=== PATIENT | male | born 1970 | race Caucasian/White ===

== ENCOUNTER 2017-06-10 10:08 | Emergency (ER) | payer OTHER ==
[2017-06-10 10:18] VITALS: BMI 23.1
--- NOTE | 2017-06-10 10:30 | PDOC ---
History of Present Illness - General Chief Complaint: Pain, Acute Stated Complaint: PAIN Time Seen by Provider: 06/10/17 10:29 History Source: Patient Exam Limitations: No Limitations - History of Present Illness Initial Comments: 46 year old male with history of ALS presenting with Left sided flank pain radiating to his groin but originally beginning in his groin 3 days prior. He states that he experienced a 5-7/10 sharp pain in his groin three days ago without any concomitant symptoms that eventually radiated to his left flank/ back and he now describes as a 10/10 sharp pain that radiates to his groin. This has co-presented with some diaphoresis, chills, and shortness of breath. The pain itself does relapse and remit in 5-10 minute intervals. Of note, he had some difficulty urinating yesterday. Denies any fevers, cough, chest pain, changes in urine color, or other symptoms. He is on bi-pap at home to help him breath. 06/10/17 12:07 06/10/17 13:43 06/10/17 13:43 06/10/17 16:34 Past History - Past Medical History Allergies/Adverse Reactions: Allergies Allergy/AdvReac Type Severity Reaction Status Date / Time No Known Allergies Allergy Verified 06/10/17 10:15 Home Medications: Ambulatory Orders Ibuprofen [Motrin -] 400 mg PO TID #21 tablet 06/10/17 Oxycodone HCl 5 mg PO TID PRN #21 capsule MDD 3 pills 06/10/17 Riluzole 50 mg PO BID 06/10/17 Tamsulosin HCl 0.4 mg PO HS #7 cap.er.24h 06/10/17 GI Disorders: Yes (Hep B) Other medical history: ALS - Psycho/Social/Smoking Cessation Hx Anxiety: No Suicidal Ideation: No Smoking History: Never smoked Have you smoked in the past 12 months: No Information on smoking cessation initiated: No Hx Alcohol Use: No Drug/Substance Use Hx: No Substance Use Type: None *Physical Exam - Vital Signs Last Vital Signs Temp Pulse Resp BP Pulse Ox 98.2 F 69 22 118/92 100 06/10/17 10:16 06/10/17 10:16 06/10/17 10:16 06/10/17 10:16 06/10/17 10:16 - Physical Exam General Appearance: Yes: Nourished, Appropriately Dressed, Apparent Distress, Moderate Distress HEENT: positive: EOMI, DESTINY, Normal Voice Neck: positive: Tender, Trachea midline, Normal Thyroid Respiratory/Chest: positive: Lungs Clear, Normal Breath Sounds, Respiratory Distress (Patient has shallow breaths and in mild respiratory distress apparently secondary to pain.), Labored Respiration. negative: Chest Tender, Accessory Muscle Use, Rhonchi, Stridor, Wheezing Cardiovascular: positive: Regular Rhythm, Regular Rate, S1, S2. negative: Murmur Gastrointestinal/Abdominal: positive: Normal Bowel Sounds, Flat, Soft. negative : Tender, Organomegaly Musculoskeletal: positive: Other (General weakness) Neurologic: positive: Fully Oriented, Alert, Normal Mood/Affect, Other ( Generally weak per his baseline). negative: Motor Strength 03/21 ED Treatment Course - LABORATORY CBC & Chemistry Diagram: 06/10/17 09:40 06/10/17 10:56 Medical Decision Making - Medical Decision Making 46 year old male with history of ALS presenting with Left sided flank pain radiating to his groin but originally beginning in his groin 3 days prior. This is admittedly an unclear symptomatology given the nature of fluctuating radiation and origin of pain. We should rule out urinary infectious etiology and renal calculus. Will send UA, U Culture, CBC, CMP, tropoin, CXR, and CT abdomen pelvis without contrast. 06/10/17 13:43 06/10/17 14:02 Labs significant for neg trop, WBC 13, no abnormalities on UA, T-bili 1.[address] demonstrating stone in bladder with non obstructing left sided stone. Will reassess after 2 of morphine administered. 06/10/17 16:34 Patient much better after 2 of morphine and 15 of toradol. Will DC home with flowmax, Oxy 5, and Motrin *DC/Admit/Observation/Transfer Diagnosis at time of Disposition: Bilateral nephrolithiasis - Discharge Dispostion Disposition: HOME Condition at time of disposition: Improved Admit: No - Prescriptions Prescriptions: Ibuprofen [Motrin -] 400 mg PO TID #21 tablet Oxycodone HCl 5 mg PO TID PRN #21 capsule MDD 3 pills PRN Reason: Back Pain Tamsulosin HCl 0.4 mg PO HS #7 cap.er.24h - Referrals Referrals: Anup Phillips MD [Primary Care Provider] - - Patient Instructions Printed Discharge Instructions: Kidney Stones -- Adult Additional Instructions: You were seen for back pain and groin pain. We did a CT which showed kidney stones. They will most likely pass on their own. We will prescribe you some pain medication and a medication that will relax the smooth muscles in your urinary tract to help move the stones. Please take your motrin twice a day and you can take your oxycodone as needed if the pain isn't controlled by your motrin. Please return if you have pain that is not controlled with your medications or you get fevers, chills, nausea,a vomiting, or other sick symptoms. Please run your urine through a strainer to catch your stones so you can bring them into your primary care physician.
[2017-06-10] MEDS ORDERED: HYDROmorphone HCL CARPU-JECT 1 MG/1 ML DISP.SYRIN IVPUSH ONE (10:53)
[2017-06-10] MEDS ORDERED: ACETAMINOPHEN 1000 MG/100 ML VIAL (NON FORMULARY) IVPB ONE (10:57)
[2017-06-10] MEDS ORDERED: ACETAMINOPHEN INJECTION 100 ML IVPB ONE (11:00)
[2017-06-10 11:09] LABS: BASOPHIL 0.3 % (0-2.0); EOSINOPHIL 0.1 % (0-4.5); MCH 30.4 pg (25.7-33.7); MCHC 33.8 g/dl (32.0-35.9); MEAN CELL VOLUME 89.9 fl (80-96); MEAN PLT VOLUME 9.9 fl (7.5-11.1); NEUTROPHILS 87.4 % (42.8-82.8); PLATELET COUNT 214 K/MM3 (134-434); RDW 14.3 % (11.9-15.9); WHITE BLOOD COUNT 13.2 K/mm3 (4.0-10.0)
[2017-06-10] MEDS ORDERED: SODIUM CHLORIDE 0.9% 1000 ML INFUS.BAG IV ONE (11:12)
[2017-06-10 11:29] LABS: ALBUMIN 4.5 g/dl (3.4-5.0); ALK PHOS 59 U/L (45-117); ANION GAP 10 (8-16); BILIRUBIN,TOTAL 1.5 mg/dL (0.2-1.0); CALCIUM 9.9 mg/dL (8.5-10.1); CO2 24 mmol/L (21-32); CREATININE 0.4 mg/dL (0.7-1.3); GLUCOSE,RANDOM 109 mg/dL (74-106); SGPT/ALT 36 U/L (12-78); TOT PROT 8.3 g/dl (6.4-8.2)
[2017-06-10 11:31] LABS: SGOT/AST 54 U/L (15-37)
--- NOTE | 2017-06-10 11:37 | PDOC ---
Attending Attestation - Resident Resident Name: AdryanMarjanjorge l - ED Attending Attestation I have performed the following: I have examined & evaluated the patient, The case was reviewed & discussed with the resident, I agree w/resident's findings & plan, Exceptions are as noted - HPI HPI: 06/10/17 11:35 46-year-old male with ALS presents with right groin/flank pain over the last 3 days. Feels clammy particularly with the pain exacerbations, reports some urinary complaints, denies any other nausea/vomiting/diarrhea/constipation. No acute respiratory complaints, uses Cpap at night at baseline. No fevers or chills. No known history of kidney stones, has had urinary infections in the past. - Physicial Exam PE: 06/10/17 11:36 Afebrile. Vital signs normal, Slightly tachypneic Heart and lungs are clear Mild right CVA discomfort, no abdominal tenderness. Urine at bedside is cloudy but not grossly bloody Baseline neurological generalized weakness - Medical Decision Making 06/10/17 11:37 Patient seen and evaluated with the resident. I agree with the overall evaluation, assessment, and management with the following summary of visit: 46-year-old male with ALS presents with right groin pain radiating to the right flank. Presentation could be consistent with UTI/pyelonephritis, rule out stone , rule out pulmonary pathology. Labs, urinalysis, urine culture Chest x-ray, noncontrast CT of the abdomen and pelvis Pain control, IV fluids Reassess
[2017-06-10 11:49] LABS: TROPONIN I < 0.02 ng/ml (0.00-0.05)
[2017-06-10 11:53] LABS: URINE APPEARANCE CLOUDY; URINE BILIRUBIN NEGATIVE (NEGATIVE); URINE BLOOD NEGATIVE (NEGATIVE); URINE COLOR YELLOW; URINE GLUCOSE (UA) NEGATIVE (NEGATIVE); URINE KETONE 2+ (NEGATIVE); URINE LEUK ESTERASE NEGATIVE (NEGATIVE); URINE NITRITE NEGATIVE (NEGATIVE); URINE PROTEIN NEGATIVE (NEGATIVE); URINE UROBILINOGEN NEGATIVE mg/dL (0.2-1.0)
[2017-06-10 12:20] LABS: CK INDEX FOR DOBBS 5.1 % (0.0-5.0)
[2017-06-10] MEDS ORDERED: morphine CARPU-JECT 2 MG/1 ML DISP.SYRIN IVPUSH ONE ×2 (12:33→13:09)
[2017-06-10] MEDS ORDERED: morphine CARPU-JECT 4 MG/1 ML DISP.SYRIN ONE (14:03)
[2017-06-10] MEDS ORDERED: KETOROLAC TROMETHAMINE 15 MG/ML VIAL IVPUSH ONE (14:43)
[2017-06-10] MEDS ORDERED: KETOROLAC TROMETHAMINE 15 MG/ML VIAL ONE (14:59)
--- NOTE | 2017-06-10 15:35 | EKG ---
Test Reason : Blood Pressure : / mmHG Vent. Rate : 086 BPM Atrial Rate : 086 BPM P-R Int : 148 ms QRS Dur : 082 ms QT Int : 376 ms P-R-T Axes : 001 -24 -15 degrees QTc Int : 449 ms POOR DATA QUALITY, INTERPRETATION MAY BE ADVERSELY AFFECTED NORMAL SINUS RHYTHM EARLY TRANSSITION IN V2 MODERATE VOLTAGE CRITERIA FOR LVH, MAY BE NORMAL VARIANT BORDERLINE ECG NO PREVIOUS ECGS AVAILABLE CLINICAL CORRELATION IS RECOMMENDED Confirmed by KAREN PIMENTEL MD ([id number]) on 06/10/2017 3:35:23 PM Referred By: Confirmed By:KAREN PIMENTEL MD
[2017-06-10 17:10] VITALS: BP 147/72; PULSE 88; TEMP 98
== END 2017-06-10 17:08 | disposition home or self-care (01) ==
LOC: JER 10:08
PROC: 3E033NZ Introduction of Analgesics, Hypnotics, Sedatives into Peripheral Vein, Percutaneous Approach (ICD-10-PCS; principal; 2017-06-10)
PROC: 3E0333Z Introduction of Anti-inflammatory into Peripheral Vein, Percutaneous Approach (ICD-10-PCS; 2017-06-10)
PROC: 3E033NZ Introduction of Analgesics, Hypnotics, Sedatives into Peripheral Vein, Percutaneous Approach (ICD-10-PCS; 2017-06-10)
DX: N20.0 Calculus of kidney (principal); G12.21 Amyotrophic lateral sclerosis; B19.10 Unspecified viral hepatitis B without hepatic coma
CPT/HCPCS: 36415; 71010-TC; 74176-TC; 80053; 81003; 82550; 82553; 83690; 84484; 85025; 87086; 87186; 93005; 93010; 96374; 96375; 99284-25